=== PATIENT | male | born 1955 | race Caucasian/White ===

== ENCOUNTER 2017-11-01 08:49 | Day surgery (SDC) | payer OTHER ==
[~2017-11-01 08:49] MED LIST: Midazolam 1 MG/ML 2 ML SDV ONE; Propofol 200 MG/20 ML SDV ONE
[2017-11-01] MEDS ORDERED: Sodium Chloride 0.9% 5 ML Syringe FLUSH PRN (09:00)
[2017-11-01] MEDS ORDERED: Propofol 200 MG/20 ML SDV ONE ×2 (09:15→09:35)
[2017-11-01] MEDS: Sodium Chloride 0.9% 1,000 ML IV SCH (09:40)
[2017-11-01] MEDS ORDERED: Propofol 200 MG/20 ML SDV IV ONE (09:41)
[2017-11-01] MEDS ORDERED: Midazolam 1 MG/ML 2 ML SDV IV ONE (09:41)
[2017-11-01] MEDS ORDERED: Lactated Ringers 1,000 ML ONE (09:44)
--- NOTE | 2017-11-01 11:36 | PCM.PRNOTE ---
- Free Text/Narrative Note: PROCEDURE PERFORMED: Colonoscopy PRE-PROCEDURE DIAGNOSIS/INDICATION FOR PROCEDURE: Screening for colorectal cancer; Hx normal screening colonoscopy 10 years ago CONSENT: Informed consent was obtained prior to the procedure after discussion of the risks (including pain, bleeding, infection, perforation, missed polyps, inability to completely remove polyps necessitating repeat colonoscopy, adverse reaction to anesthesia, cardiovascular event), benefits and alternatives and expected outcomes. The patient expressed understanding and wished to proceed. Verbal consent given and consent form signed. PROCEDURAL PAUSE: Completed SEDATION: Per anesthesia DESCRIPTION OF PROCEDURE: Patient was placed in the left lateral decubitus position. After adequate sedation and anesthetic was administered, a rectal exam was performed revealing external hemorrhoids. A lubricated Olympus Video Colonoscope was inserted into the rectum and air insufflation was performed. The colonoscope was advanced through the rectum, sigmoid, descending, transverse, and ascending colon without difficulties. The cecum was reached and the ileocecal valve as well as the appendiceal orifice were identified and pictorially documented. After adequate visualization of the cecum, the scope was withdrawn, giving 360-degree views of the colonic mucosa and retroflexion was performed in the rectum with the following findings noted: Ileocecal valve: Normal Cecum: A) 6mm polyp at 1m for which snare was used, but not with cautery since polyp tissue was friable and detached spontaneously and was subsequently obtained via forceps Ascending colon: Normal Hepatic flexure: Normal Transverse colon: Normal Splenic flexure: Normal Descending colon: B) 4mm polyp at 60cm removed with cold forceps Sigmoid colon: C) 4mm polyp at 40cm removed with cold forceps in 2 bites; D) 4mm polyp at 30cm removed with cold forceps; E) Large pedunculated polypoid mass at 20cm removed with hot snare for which one clip was placed on removal site for adequate tissue closure of small defect; Scattered diverticuli Rectum: Normal Each polyp site was closely monitored following polypectomy revealing complete visible polyp removal and adequate hemostasis. The scope was straightened, air suction performed, and the scope withdrawn without complication. Preparation adequacy good. IMPRESSION: Colonoscopy performed revealing 5 polyps, one of large size in the sigmoid colon , pathology now pending; Scattered diverticuli; and External hemorrhoids. PLAN: Will see patient in clinic in approximately one week to review pathology results and determine timing of repeat colonoscopy. Encourage bowel regimen to ensure 1-2 soft bowel movements per day.
[2017-11-01 12:19] VITALS: BP 123/72
== END 2017-11-01 12:25 | disposition home or self-care (01) ==
LOC: KA.SDS 08:49
PROVIDERS: ATTEND Family Medicine
DX: Z12.11 Encounter for screening for malignant neoplasm of colon (principal); D12.0 Benign neoplasm of cecum; D12.5 Benign neoplasm of sigmoid colon; K63.5 Polyp of colon; K57.30 Diverticulosis of large intestine without perforation or abscess without bleeding; K64.4 Residual hemorrhoidal skin tags; K21.9 Gastro-esophageal reflux disease without esophagitis; I10 Essential (primary) hypertension; D50.9 Iron deficiency anemia, unspecified; E11.9 Type 2 diabetes mellitus without complications; E78.4 Other hyperlipidemia; E66.9 Obesity, unspecified; Z68.30 Body mass index [BMI] 30.0-30.9, adult; Z79.82 Long term (current) use of aspirin; Z79.84 Long term (current) use of oral hypoglycemic drugs; Z79.899 Other long term (current) drug therapy; Z98.890 Other specified postprocedural states
CPT/HCPCS: 00812; 82962; J2250; J2704; J7030

== ENCOUNTER 2021-01-27 06:55 | Day surgery (SDC) | payer MEDICARE, OTHER ==
[2021-01-27] MEDS ORDERED: Sodium Chloride 0.9% 10 ML Syringe FLUSH PRN (07:00)
[2021-01-27] MEDS ORDERED: Sodium Chloride 0.9% 1,000 ML IV SCH (07:00)
[2021-01-27] MEDS ORDERED: Midazolam 1 MG/ML 2 ML SDV ONE (07:54)
[2021-01-27] MEDS ORDERED: Propofol 200 MG/20 ML SDV ONE (07:55)
--- NOTE | 2021-01-27 09:17 | PCM.PRNOTE ---
- Free Text/Narrative Note: PROCEDURE PERFORMED: Colonoscopy with polypectomy PRE-PROCEDURE DIAGNOSIS/INDICATION FOR PROCEDURE: History of tubular adenomas; 11/01/17 colonoscopy with 4 tubular adenomas, one >1cm CONSENT: Informed consent was obtained prior to the procedure after discussion of the risks (including pain, bleeding, infection, perforation, missed polyps, inability to completely remove polyps or complete procedure necessitating repeat colonoscopy, adverse reaction to anesthesia, cardiovascular event), benefits and alternatives and expected outcomes. The patient expressed understanding and wished to proceed. Verbal consent given and consent form signed. PROCEDURAL PAUSE: Completed SEDATION: Per anesthesia DESCRIPTION OF PROCEDURE: Patient was placed in the left lateral decubitus position. After adequate sedation and anesthetic was administered, a rectal exam was performed revealing no abnormalities. A lubricated Olympus Video Colonoscope was inserted into the rectum and air insufflation was performed. The colonoscope was advanced through the rectum, sigmoid, descending, transverse, and ascending colon without difficulties. The cecum was reached and the ileocecal valve as well as the appendiceal orifice were identified and pictorially documented. After adequate visualization of the cecum, the scope was withdrawn, giving 360-degree views of the colonic mucosa and retroflexion was performed in the rectum with the following findings noted: Ileocecal valve: Normal Cecum: Normal Ascending colon: Normal Hepatic flexure: Normal Transverse colon: Normal Splenic flexure: Normal Descending colon: Normal Sigmoid colon: At 45cm, two sessile polyps <0.5cm each removed with cold forceps and subsequent complete polypoid tissue removal and hemostasis noted; At 10cm, one sessile polyp <0.5cm removed with cold forceps and subsequent complete polypoid tissue removal and hemostasis noted; Scattered small diverticulosis Rectum: Normal The scope was straightened, air suction performed, and the scope withdrawn without complication. Preparation adequacy [place] Bowel Score 9/9. IMPRESSION: Colonoscopy performed revealing: - Three small sessile polyps in the sigmoid colon, pathology now pending - Sigmoid diverticulosis PLAN: Will contact the patient when pathology results received with recommendation for repeat colonoscopy. Encourage adequate fiber diet and bowel regimen to ensure avoidance of constipation.
== END 2021-01-27 09:58 | disposition home or self-care (01) ==
LOC: KA.SDS 06:55
PROVIDERS: ATTEND Family Medicine
DX: Z12.11 Encounter for screening for malignant neoplasm of colon (principal); D12.5 Benign neoplasm of sigmoid colon; K57.30 Diverticulosis of large intestine without perforation or abscess without bleeding; K62.1 Rectal polyp; I10 Essential (primary) hypertension; E11.9 Type 2 diabetes mellitus without complications; J30.9 Allergic rhinitis, unspecified; E78.49 Other hyperlipidemia; J45.30 Mild persistent asthma, uncomplicated; E66.3 Overweight; D50.9 Iron deficiency anemia, unspecified; K21.9 Gastro-esophageal reflux disease without esophagitis; Z79.84 Long term (current) use of oral hypoglycemic drugs; Z68.27 Body mass index [BMI] 27.0-27.9, adult; E83.42 Hypomagnesemia; Z79.899 Other long term (current) drug therapy; Z98.890 Other specified postprocedural states; Z87.891 Personal history of nicotine dependence
CPT/HCPCS: 00812; 82947; J2250; J2704; J7030